=== PATIENT | female | born 1990 | race Caucasian/White ===

== ENCOUNTER 2018-08-10 20:59 | Emergency (ER) | payer OTHER ==
[~2018-08-10] VITALS: Ht 162.6 cm; Wt 91.2 kg
[~2018-08-10 20:59] MED LIST: ABAT250V; ALBU90OI INH; AMOX500 PO; BENTYL20 MG PO; CEPH500 PO; CODGUAEL PO; CRUTCH4 USE; CYCL10 PO; Colace100 MG PO; DOCU100; Desyrel50 MG PO; EXPECTA PRENAT1 EACH; FAMO20 PO; HYDACE5 PO; HYDR1TAB94; HYDROXYZINE; IBUP800; IBUP800 PO; LORA.5 PO; Loperamide2 MG PO; META800 PO; METCAR750 PO; METO10 PO; MULVITMIND PO; Monodox100 MG PO; NAPR500 PO; Norco 5-325 Ta1 EACH PO; OMEP40CA12 PO; ONDA4 PO; OXYACE5T; OXYACE5T PO; PHENERGAN25 MG RC; PROC10 PO; PROC5 PO; PROM25 PO; PROM25S PR; Pepcid40 MG PO; Percocet 5-3251 EACH PO; Prevacid Soluta30 MG JT; RANI150 PO; RXPROM25 PO; RXTRAM50 PO; SPACE CHAMBER1 EACH MC; SUCR1 PO; TRAM50 PO; TRAZODONE; Ultram50 MG PO; Verotin-Gr Cap1 EACH PO; Zofran Odt4 MG PO; Zofran Odt4 MG SL; Zofran Odt8 MG SL
== END 2018-08-10 23:36 | disposition left against medical advice (07) ==
LOC: ER 20:59
DX: Z53.21 Procedure and treatment not carried out due to patient leaving prior to being seen by health care provider (principal)

== ENCOUNTER 2018-08-11 07:24 | Emergency (ER) | payer OTHER ==
[~2018-08-11] VITALS: Ht 162.6 cm; Wt 91.2 kg
== END 2018-08-11 08:50 | disposition home or self-care (01) ==
LOC: ER 07:24
DX: O03.9 Complete or unspecified spontaneous abortion without complication (principal); Z87.891 Personal history of nicotine dependence
CPT/HCPCS: 36415; 84702; 99283

== ENCOUNTER → 2018-08-15 | Outpatient (CLI) | payer OTHER | END | disposition home or self-care (01) | LOC: LAB 11:17 → LAB SHORT 11:17 | DX: O36.80X0 Pregnancy with inconclusive fetal viability, not applicable or unspecified (principal) | CPT/HCPCS: 84702 ==

== ENCOUNTER 2018-09-03 20:37 | Observation (INO) | payer OTHER ==
[~2018-09-03] VITALS: Ht 162.6 cm; Wt 89.8 kg
[2018-09-03 21:16] LABS: BASOPHILS ABSOLUTE AUTO 0.04 K/mm3 (0.00-0.23); BASOPHILS PERCENT AUTO 1 % (0-2); EOSINOPHILS ABSOLUTE AUTO 0.26 K/mm3 (0.00-0.68); EOSINOPHILS PERCENT AUTO 3 % (0-6); Hemoglobin 12.8 g/dL (11.5-16.0); IMMATURE GRAN ABSOLUTE AUTO 0.01 K/mm3 (0.00-0.10); IMMATURE GRAN PERCENT AUTO 0 % (0-1); LYMPHOCYTES ABSOLUTE AUTO 4.63 K/mm3 (0.84-5.20); LYMPHOCYTES PERCENT AUTO 55 % (21-46); MONOCYTES ABSOLUTE AUTO 0.67 K/mm3 (0.16-1.47); MONOCYTES PERCENT AUTO 8 % (4-13); Mean Corpuscular HGB 29.4 pg (26.0-34.0); Mean Corpuscular Volume 92 fL (80-100); Mean Platelet Volume 10.2 fL (9.1-12.4); NEUTROPHILS ABSOLUTE AUTO 2.84 K/mm3 (1.96-9.15); NEUTROPHILS PERCENT AUTO 34 % (41-73); Platelet Count 229 K/mm3 (150-400); RDW Coefficient Variation 12.6 % (11.7-14.2); RDW Standard Deviation 41.8 fL (35.1-46.3); Red Blood Cell Count 4.35 M/mm3 (3.80-5.20); White Blood Cell Count 8.45 K/mm3 (4.00-11.30)
[2018-09-03 21:34] LABS: Alanine Aminotransfer (ALT/SGP 26 U/L (12-78); Albumin/Globulin Ratio 1.1 (0.8-1.8); Alk Phos 51 U/L (50-136); Anion Gap 6 mmol/L (6-16); Aspartate Aminotrans (AST/SGOT 15 U/L (12-37); Bilirubin, Total 0.5 mg/dL (0.1-1.0); Blood Urea Nitrogen 14 mg/dL (8-24); Bun/Creatinine Ratio 15.2 (12.0-20.0); CO2, Blood 30 mmol/L (21-32); Chloride, Blood 106 mmol/L (98-108); Creatinine, Blood 0.92 mg/dL (0.40-1.00); Globulin, Blood 3.5 g/dL (2.2-4.0); Glomerular Filtration Rate >60 (60-); Glucose, Blood 81 mg/dL (70-99); Potassium, Blood 3.7 mmol/L (3.5-5.5); Sodium, Blood 142 mmol/L (136-145); Total Protein, Blood 7.5 g/dL (6.4-8.2)
[2018-09-03 22:09] LABS: Source, Urine Clean Catch
[2018-09-03 22:18] LABS: Bilirubin, Urine Neg (Neg); Blood, Urine Neg (Neg); Glucose Qualitative, Urine Neg (Neg); Ketones, Urine Neg (Neg); Leukocyte Esterase, Urine Neg (Neg); Nitrite, Urine Neg (Neg); Protein, Urine Neg (Neg); Urobilinogen, Urine NORM (Normal); pH, Urine 6.5 (5.0-8.0)
[2018-09-03 22:23] LABS: Appearance, Urine Clear (Clear); Color, Urine Yellow (P-Yellow)
--- NOTE | 2018-09-04 00:20 | NUR ---
PT ADMITTED FROM ED FOR ECTOPIC . A&O X4, VS WNL. STABLE CBC. RATING PAIN 7/10. PT GIVEN BENADRYL IN ED AND IS VERY DROWSY AT THIS TIME. WILL OBTAIN ORDERS FROM DR. RODRIGUEZ. PT REPORTS NO MEDICAL HISTORY AND NO PRESCRIBED MEDICATIONS.
[2018-09-04 01:38] LABS: BASOPHILS ABSOLUTE AUTO 0.02 K/mm3 (0.00-0.23); BASOPHILS PERCENT AUTO 0 % (0-2); EOSINOPHILS ABSOLUTE AUTO 0.19 K/mm3 (0.00-0.68); EOSINOPHILS PERCENT AUTO 3 % (0-6); Hemoglobin 12.6 g/dL (11.5-16.0); IMMATURE GRAN ABSOLUTE AUTO 0.03 K/mm3 (0.00-0.10); IMMATURE GRAN PERCENT AUTO 0 % (0-1); LYMPHOCYTES ABSOLUTE AUTO 3.75 K/mm3 (0.84-5.20); LYMPHOCYTES PERCENT AUTO 55 % (21-46); MONOCYTES ABSOLUTE AUTO 0.56 K/mm3 (0.16-1.47); MONOCYTES PERCENT AUTO 8 % (4-13); Mean Corpuscular HGB 29.8 pg (26.0-34.0); Mean Corpuscular HGB Conc 32.3 g/dL (31.5-36.5); Mean Corpuscular Volume 92 fL (80-100); Mean Platelet Volume 10.2 fL (9.1-12.4); NEUTROPHILS ABSOLUTE AUTO 2.29 K/mm3 (1.96-9.15); NEUTROPHILS PERCENT AUTO 34 % (41-73); Platelet Count 190 K/mm3 (150-400); RDW Coefficient Variation 12.5 % (11.7-14.2); RDW Standard Deviation 42.4 fL (35.1-46.3); Red Blood Cell Count 4.23 M/mm3 (3.80-5.20); White Blood Cell Count 6.84 K/mm3 (4.00-11.30)
[2018-09-04 04:02] LABS: BASOPHILS ABSOLUTE AUTO 0.01 K/mm3 (0.00-0.23); BASOPHILS PERCENT AUTO 0 % (0-2); EOSINOPHILS ABSOLUTE AUTO 0.19 K/mm3 (0.00-0.68); EOSINOPHILS PERCENT AUTO 3 % (0-6); Hematocrit 38.4 % (33.0-51.0); Hemoglobin 12.3 g/dL (11.5-16.0); IMMATURE GRAN ABSOLUTE AUTO 0.01 K/mm3 (0.00-0.10); IMMATURE GRAN PERCENT AUTO 0 % (0-1); LYMPHOCYTES PERCENT AUTO 60 % (21-46); MONOCYTES ABSOLUTE AUTO 0.56 K/mm3 (0.16-1.47); MONOCYTES PERCENT AUTO 9 % (4-13); Mean Corpuscular HGB 29.3 pg (26.0-34.0); Mean Corpuscular Volume 91 fL (80-100); Mean Platelet Volume 10.2 fL (9.1-12.4); NEUTROPHILS ABSOLUTE AUTO 1.83 K/mm3 (1.96-9.15); NEUTROPHILS PERCENT AUTO 28 % (41-73); Platelet Count 197 K/mm3 (150-400); RDW Coefficient Variation 12.7 % (11.7-14.2); RDW Standard Deviation 41.5 fL (35.1-46.3)
[2018-09-04 07:31] LABS: BASOPHILS ABSOLUTE AUTO 0.02 K/mm3 (0.00-0.23); BASOPHILS PERCENT AUTO 0 % (0-2); EOSINOPHILS PERCENT AUTO 3 % (0-6); Hematocrit 39.7 % (33.0-51.0); Hemoglobin 12.7 g/dL (11.5-16.0); IMMATURE GRAN ABSOLUTE AUTO 0.01 K/mm3 (0.00-0.10); IMMATURE GRAN PERCENT AUTO 0 % (0-1); LYMPHOCYTES ABSOLUTE AUTO 3.06 K/mm3 (0.84-5.20); LYMPHOCYTES PERCENT AUTO 52 % (21-46); MONOCYTES ABSOLUTE AUTO 0.54 K/mm3 (0.16-1.47); MONOCYTES PERCENT AUTO 9 % (4-13); Mean Corpuscular HGB 29.5 pg (26.0-34.0); Mean Corpuscular Volume 92 fL (80-100); Mean Platelet Volume 10.1 fL (9.1-12.4); NEUTROPHILS ABSOLUTE AUTO 2.02 K/mm3 (1.96-9.15); NEUTROPHILS PERCENT AUTO 35 % (41-73); Platelet Count 203 K/mm3 (150-400); RDW Coefficient Variation 12.5 % (11.7-14.2); RDW Standard Deviation 42.3 fL (35.1-46.3); Red Blood Cell Count 4.31 M/mm3 (3.80-5.20); White Blood Cell Count 5.85 K/mm3 (4.00-11.30)
[2018-09-04 09:07] LABS: BASOPHILS ABSOLUTE AUTO 0.02 K/mm3 (0.00-0.23); BASOPHILS PERCENT AUTO 0 % (0-2); EOSINOPHILS ABSOLUTE AUTO 0.18 K/mm3 (0.00-0.68); EOSINOPHILS PERCENT AUTO 3 % (0-6); Hematocrit 40.6 % (33.0-51.0); Hemoglobin 13.2 g/dL (11.5-16.0); IMMATURE GRAN ABSOLUTE AUTO 0.01 K/mm3 (0.00-0.10); IMMATURE GRAN PERCENT AUTO 0 % (0-1); LYMPHOCYTES ABSOLUTE AUTO 2.52 K/mm3 (0.84-5.20); LYMPHOCYTES PERCENT AUTO 46 % (21-46); MONOCYTES ABSOLUTE AUTO 0.47 K/mm3 (0.16-1.47); MONOCYTES PERCENT AUTO 9 % (4-13); Mean Corpuscular HGB 29.8 pg (26.0-34.0); Mean Corpuscular HGB Conc 32.5 g/dL (31.5-36.5); Mean Corpuscular Volume 92 fL (80-100); Mean Platelet Volume 10.1 fL (9.1-12.4); NEUTROPHILS ABSOLUTE AUTO 2.26 K/mm3 (1.96-9.15); NEUTROPHILS PERCENT AUTO 41 % (41-73); Platelet Count 207 K/mm3 (150-400); RDW Coefficient Variation 12.4 % (11.7-14.2); RDW Standard Deviation 41.5 fL (35.1-46.3); Red Blood Cell Count 4.43 M/mm3 (3.80-5.20); White Blood Cell Count 5.46 K/mm3 (4.00-11.30)
[2018-09-04] MEDS ORDERED: IBUP800 PO (11:08)
[2018-09-04] MEDS ORDERED: TYLECOD3 PO (11:10)
--- NOTE | 2018-09-04 12:45 | NUR ---
PATIENT D/C'D HOME AT THIS TIME; STATES UNDERSTANDING OF F/U WEEKLY LABS, APPT, CALL DR FOR WORSENING OF SYMPTOMS, MEDS. NO C/O AT THIS TIME. TAKING PO. VOIDING. PAIN CONTROLLED.
== END 2018-09-04 12:42 | disposition home or self-care (01) ==
LOC: ER 20:37 → SURS 20:38 → ER 09-04 00:13 → SURS 09-04 00:13
PROVIDERS: Physician Assistant; ADMIT Obstetrics & Gynecology
DX: O02.81 Inappropriate change in quantitative human chorionic gonadotropin (hCG) in early pregnancy (principal); Z87.891 Personal history of nicotine dependence
CPT/HCPCS: 36415; 76830; 76856; 80053; 81003; 83690; 84702; 85025; 96374; 96375; 96376; 99285-25; G0378; J0780; J1200; J1885; J2405; J3010

== ENCOUNTER 2018-09-09 13:22 | Emergency (ER) | payer OTHER ==
[~2018-09-09] VITALS: Ht 162.6 cm; Wt 84.8 kg
[~2018-09-09 13:22] MED LIST changes: +TYLECOD3 PO
[2018-09-09 14:11] LABS: BASOPHILS ABSOLUTE AUTO 0.02 K/mm3 (0.00-0.23); BASOPHILS PERCENT AUTO 0 % (0-2); EOSINOPHILS ABSOLUTE AUTO 0.06 K/mm3 (0.00-0.68); EOSINOPHILS PERCENT AUTO 1 % (0-6); Hemoglobin 13.4 g/dL (11.5-16.0); IMMATURE GRAN ABSOLUTE AUTO 0.02 K/mm3 (0.00-0.10); IMMATURE GRAN PERCENT AUTO 0 % (0-1); LYMPHOCYTES ABSOLUTE AUTO 1.84 K/mm3 (0.84-5.20); LYMPHOCYTES PERCENT AUTO 27 % (21-46); MONOCYTES ABSOLUTE AUTO 0.36 K/mm3 (0.16-1.47); MONOCYTES PERCENT AUTO 5 % (4-13); Mean Corpuscular HGB 30.3 pg (26.0-34.0); Mean Corpuscular HGB Conc 33.5 g/dL (31.5-36.5); Mean Corpuscular Volume 91 fL (80-100); Mean Platelet Volume 10.5 fL (9.1-12.4); NEUTROPHILS ABSOLUTE AUTO 4.47 K/mm3 (1.96-9.15); NEUTROPHILS PERCENT AUTO 66 % (41-73); Platelet Count 240 K/mm3 (150-400); RDW Coefficient Variation 12.4 % (11.7-14.2); RDW Standard Deviation 41.2 fL (35.1-46.3); Red Blood Cell Count 4.42 M/mm3 (3.80-5.20); White Blood Cell Count 6.77 K/mm3 (4.00-11.30)
[2018-09-09 14:18] LABS: Alanine Aminotransfer (ALT/SGP 24 U/L (12-78); Albumin, Blood 4.1 g/dL (3.4-5.0); Albumin/Globulin Ratio 1.2 (0.8-1.8); Alk Phos 52 U/L (50-136); Anion Gap 4 mmol/L (6-16); Aspartate Aminotrans (AST/SGOT 20 U/L (12-37); Beta HCG, Quantitative, Serum 2 mIU/mL (0-3); Bilirubin, Total 0.6 mg/dL (0.1-1.0); Blood Urea Nitrogen 13 mg/dL (8-24); Bun/Creatinine Ratio 17.1 (12.0-20.0); CO2, Blood 27 mmol/L (21-32); Calcium, Blood 9.2 mg/dL (8.5-10.1); Chloride, Blood 109 mmol/L (98-108); Creatinine, Blood 0.76 mg/dL (0.40-1.00); Globulin, Blood 3.5 g/dL (2.2-4.0); Glomerular Filtration Rate >60 (60-); Glucose, Blood 96 mg/dL (70-99); Potassium, Blood 3.9 mmol/L (3.5-5.5); Sodium, Blood 140 mmol/L (136-145); Total Protein, Blood 7.6 g/dL (6.4-8.2)
[2018-09-09 15:10] LABS: Source, Urine Clean Catch
[2018-09-09 15:24] LABS: Appearance, Urine Clear (Clear); Bilirubin, Urine Neg (Neg); Blood, Urine Neg (Neg); Color, Urine Yellow (P-Yellow); Glucose Qualitative, Urine Neg (Neg); Ketones, Urine 2+ (Neg); Leukocyte Esterase, Urine Neg (Neg); Nitrite, Urine Neg (Neg); Protein, Urine Neg (Neg); Specific Gravity, Urine 1.015 (1.003-1.022); Urobilinogen, Urine 1+ (Normal)
[2018-09-09] MEDS ORDERED: Norco 5-325 Ta1 EACH PO (15:48)
[2018-09-09] MEDS ORDERED: Zofran4 MG PO (15:48)
== END 2018-09-09 15:58 | disposition home or self-care (01) ==
LOC: ER 13:22
PROVIDERS: Physician Assistant
DX: R11.2 Nausea with vomiting, unspecified (principal); Z87.891 Personal history of nicotine dependence
CPT/HCPCS: 36415; 80053; 81003; 84702; 85025; 96374; 99283-25; J2405

== ENCOUNTER 2019-01-01 15:33 | Emergency (ER) | payer OTHER ==
[~2019-01-01] VITALS: Ht 162.6 cm; Wt 86.2 kg
[~2019-01-01 15:33] MED LIST changes: +Zofran4 MG PO
== END 2019-01-01 17:19 | disposition home or self-care (01) ==
LOC: ER 15:33
DX: Z03.89 Encounter for observation for other suspected diseases and conditions ruled out (principal); Z87.891 Personal history of nicotine dependence
CPT/HCPCS: 36415; 84702; 99283

== ENCOUNTER 2019-03-26 08:21 | Emergency (ER) | payer OTHER ==
[~2019-03-26] VITALS: Ht 167.6 cm; Wt 88.5 kg
[2019-03-26] MEDS ORDERED: PRENATAL TABLE1 EAC2 PO (08:49)
[2019-03-26] MEDS ORDERED: ONDA4ODT MM (08:49)
[2019-03-26 09:12] LABS: BASOPHILS ABSOLUTE AUTO 0.02 K/mm3 (0.00-0.23); BASOPHILS PERCENT AUTO 0 % (0-2); EOSINOPHILS PERCENT AUTO 1 % (0-6); Hematocrit 37.7 % (33.0-51.0); Hemoglobin 12.9 g/dL (11.5-16.0); IMMATURE GRAN ABSOLUTE AUTO 0.03 K/mm3 (0.00-0.10); IMMATURE GRAN PERCENT AUTO 0 % (0-1); LYMPHOCYTES ABSOLUTE AUTO 2.62 K/mm3 (0.84-5.20); LYMPHOCYTES PERCENT AUTO 32 % (21-46); MONOCYTES ABSOLUTE AUTO 0.72 K/mm3 (0.16-1.47); MONOCYTES PERCENT AUTO 9 % (4-13); Mean Corpuscular HGB Conc 34.2 g/dL (31.5-36.5); Mean Platelet Volume 10.2 fL (9.1-12.4); NEUTROPHILS ABSOLUTE AUTO 4.79 K/mm3 (1.96-9.15); NEUTROPHILS PERCENT AUTO 58 % (41-73); Platelet Count 186 K/mm3 (150-400); RDW Coefficient Variation 12.1 % (11.7-14.2); RDW Standard Deviation 39.8 fL (35.1-46.3); Red Blood Cell Count 4.16 M/mm3 (3.80-5.20); White Blood Cell Count 8.28 K/mm3 (4.00-11.30)
[2019-03-26 09:13] LABS: Mean Corpuscular Volume 91 fL (80-100)
[2019-03-26 09:38] LABS: Alanine Aminotransfer (ALT/SGP 23 U/L (12-78); Albumin, Blood 3.4 g/dL (3.4-5.0); Alk Phos 41 U/L (50-136); Anion Gap 10 mmol/L (6-16); Aspartate Aminotrans (AST/SGOT 15 U/L (12-37); Bilirubin, Total 0.4 mg/dL (0.1-1.0); Blood Urea Nitrogen 10 mg/dL (8-24); Bun/Creatinine Ratio 17.7 (12.0-20.0); CO2, Blood 23 mmol/L (21-32); Calcium, Blood 8.7 mg/dL (8.5-10.1); Chloride, Blood 106 mmol/L (98-108); Creatinine, Blood 0.56 mg/dL (0.40-1.00); Globulin, Blood 3.4 g/dL (2.2-4.0); Glomerular Filtration Rate >60 (60-); Glucose, Blood 79 mg/dL (70-99); Potassium, Blood 3.8 mmol/L (3.5-5.5); Sodium, Blood 139 mmol/L (136-145); Total Protein, Blood 6.8 g/dL (6.4-8.2)
[2019-03-26 10:00] LABS: Beta HCG, Quantitative, Serum 142655 mIU/mL (0-3)
[2019-03-26 10:30] LABS: Source, Urine Clean Catch
[2019-03-26 10:36] LABS: Appearance, Urine Clear (Clear); Bilirubin, Urine Neg (Neg); Blood, Urine Neg (Neg); Color, Urine Yellow (P-Yellow); Glucose Qualitative, Urine Neg (Neg); Ketones, Urine 3+ (Neg); Leukocyte Esterase, Urine Neg (Neg); Nitrite, Urine Neg (Neg); Protein, Urine Neg (Neg); Urobilinogen, Urine NORM (Normal)
[2019-03-26] MEDS ORDERED: Promethazine12.5 M1 PO (11:10)
== END 2019-03-26 11:34 | disposition home or self-care (01) ==
LOC: ER 08:21
PROVIDERS: Emergency Medicine
DX: O21.9 Vomiting of pregnancy, unspecified (principal); F17.200 Nicotine dependence, unspecified, uncomplicated; Z91.018 Allergy to other foods; Z3A.08 8 weeks gestation of pregnancy
CPT/HCPCS: 36415; 80053; 81003; 83690; 84702; 85025; 96361; 96374; 99284-25; J2405; J7030

== ENCOUNTER → 2019-05-21 | Outpatient (CLI) | payer OTHER ==
[~2019-05-21] MED LIST changes: +ONDA4ODT MM; +PRENATAL TABLE1 EAC2 PO; +Promethazine12.5 M1 PO
[2019-05-24 07:07] LABS: CHLAMYDIA TRACHOMATIS, NAA Negative (Negative); NEISSERIA GONORRHOEAE, NAA Negative (Negative)
== END | disposition home or self-care (01) ==
LOC: LAB 15:31 → LAB SHORT 15:31
PROVIDERS: Advanced Practice Midwife
DX: Z11.3 Encounter for screening for infections with a predominantly sexual mode of transmission (principal)
CPT/HCPCS: 87491; 87591

== ENCOUNTER 2019-05-30 09:39 | Emergency (ER) | payer OTHER ==
[~2019-05-30] VITALS: Ht 165.1 cm; Wt 91.2 kg
[2019-05-30 10:06] LABS: BASOPHILS ABSOLUTE AUTO 0.02 K/mm3 (0.00-0.23); BASOPHILS PERCENT AUTO 0 % (0-2); EOSINOPHILS ABSOLUTE AUTO 0.02 K/mm3 (0.00-0.68); EOSINOPHILS PERCENT AUTO 0 % (0-6); Hematocrit 43.2 % (33.0-51.0); IMMATURE GRAN ABSOLUTE AUTO 0.04 K/mm3 (0.00-0.10); IMMATURE GRAN PERCENT AUTO 1 % (0-1); LYMPHOCYTES PERCENT AUTO 8 % (21-46); MONOCYTES PERCENT AUTO 3 % (4-13); Mean Corpuscular HGB 31.4 pg (26.0-34.0); Mean Corpuscular HGB Conc 34.7 g/dL (31.5-36.5); Mean Corpuscular Volume 90 fL (80-100); Mean Platelet Volume 10.5 fL (9.1-12.4); NEUTROPHILS ABSOLUTE AUTO 7.72 K/mm3 (1.96-9.15); NEUTROPHILS PERCENT AUTO 88 % (41-73); Platelet Count 195 K/mm3 (150-400); RDW Coefficient Variation 12.8 % (11.7-14.2); RDW Standard Deviation 41.9 fL (35.1-46.3); Red Blood Cell Count 4.78 M/mm3 (3.80-5.20)
[2019-05-30 10:15] LABS: Alanine Aminotransfer (ALT/SGP 29 U/L (12-78); Albumin, Blood 3.2 g/dL (3.4-5.0); Albumin/Globulin Ratio 0.8 (0.8-1.8); Alk Phos 59 U/L (50-136); Anion Gap 9 mmol/L (6-16); Aspartate Aminotrans (AST/SGOT 22 U/L (12-37); Bilirubin, Total 0.6 mg/dL (0.1-1.0); Blood Urea Nitrogen 11 mg/dL (8-24); Bun/Creatinine Ratio 19.7 (12.0-20.0); CO2, Blood 22 mmol/L (21-32); Calcium, Blood 8.9 mg/dL (8.5-10.1); Chloride, Blood 106 mmol/L (98-108); Creatinine, Blood 0.56 mg/dL (0.40-1.00); Glomerular Filtration Rate >60 (60-); Glucose, Blood 105 mg/dL (70-99); Potassium, Blood 3.8 mmol/L (3.5-5.5); Sodium, Blood 137 mmol/L (136-145); Total Protein, Blood 7.2 g/dL (6.4-8.2)
[2019-05-30 10:21] LABS: Influenza A Negative (NEGATIVE); Influenza B Negative (NEGATIVE)
== END 2019-05-30 11:48 | disposition home or self-care (01) ==
LOC: ER 09:39
PROVIDERS: Emergency Medicine
DX: O99.512 Diseases of the respiratory system complicating pregnancy, second trimester (principal); J11.1 Influenza due to unidentified influenza virus with other respiratory manifestations; Z91.018 Allergy to other foods; Z87.891 Personal history of nicotine dependence; Z3A.18 18 weeks gestation of pregnancy
CPT/HCPCS: 36415; 80053; 85025; 87804; 96361; 96374; 96375; 99284-25; A9270; C9113; J2405; J7030

== ENCOUNTER → 2019-07-20 | Outpatient (CLI) | payer OTHER | LOC: LAB SHORT 13:40 → LAB 13:40 | DX: J06.9 Acute upper respiratory infection, unspecified (principal); J02.9 Acute pharyngitis, unspecified | CPT/HCPCS: 87081 ==

== ENCOUNTER → 2019-09-06 | Outpatient (CLI) | payer OTHER ==
[2019-09-07 15:22] LABS: Protein, Urine Quantitative <5.0 mg/dL (0.0-11.9)
== END | disposition home or self-care (01) ==
LOC: LAB SHORT 13:00 → LAB 13:00
PROVIDERS: Obstetrics & Gynecology
DX: O13.9 Gestational [pregnancy-induced] hypertension without significant proteinuria, unspecified trimester (principal)
CPT/HCPCS: 81050; 84156

== ENCOUNTER → 2019-10-02 | Outpatient (CLI) | payer OTHER | END | disposition home or self-care (01) | LOC: LAB SHORT 10:30 → LAB 10:30 | DX: O13.9 Gestational [pregnancy-induced] hypertension without significant proteinuria, unspecified trimester (principal) | CPT/HCPCS: 87081; 87653 ==

== ENCOUNTER 2019-10-11 05:13 | Inpatient (IN) | payer OTHER ==
[~2019-10-11] VITALS: Ht 162.6 cm; Wt 112.7 kg
[2019-10-11] MEDS ORDERED: LABE100 PO (06:03)
[2019-10-11 07:25] LABS: BASOPHILS ABSOLUTE AUTO 0.01 K/mm3 (0.00-0.23); BASOPHILS PERCENT AUTO 0 % (0-2); EOSINOPHILS ABSOLUTE AUTO 0.14 K/mm3 (0.00-0.68); EOSINOPHILS PERCENT AUTO 2 % (0-6); IMMATURE GRAN ABSOLUTE AUTO 0.05 K/mm3 (0.00-0.10); IMMATURE GRAN PERCENT AUTO 1 % (0-1); LYMPHOCYTES ABSOLUTE AUTO 2.38 K/mm3 (0.84-5.20); LYMPHOCYTES PERCENT AUTO 27 % (21-46); MONOCYTES PERCENT AUTO 10 % (4-13); Mean Corpuscular HGB 30.1 pg (26.0-34.0); Mean Corpuscular HGB Conc 32.4 g/dL (31.5-36.5); Mean Corpuscular Volume 93 fL (80-100); NEUTROPHILS ABSOLUTE AUTO 5.34 K/mm3 (1.96-9.15); NEUTROPHILS PERCENT AUTO 61 % (41-73); Platelet Count 184 K/mm3 (150-400); RDW Coefficient Variation 14.2 % (11.7-14.2); RDW Standard Deviation 47.2 fL (35.1-46.3); Red Blood Cell Count 3.99 M/mm3 (3.80-5.20); White Blood Cell Count 8.82 K/mm3 (4.00-11.30)
--- NOTE | 2019-10-12 11:47 | NUR ---
VOIDED IN SHOWER
--- NOTE | 2019-10-12 21:11 | NUR ---
1924 PT C/O PAIN 8/10 "CRAMPING" IN ABDOMEN. STATES NO RELIEF FROM 325MG APAP GIVEN BY PREVIOUS SHIFT NURSE. PROVIDER CONTACTED AND GIVES ORDER FOR ADDITIONAL 650MG PO APAP NOW AND TO HAVE PT TRIAL USE OF A HEATING PAD TO ABDOMEN.
--- NOTE | 2019-10-13 08:29 | NUR ---
DISCHARGE TEACHING TEACHING COMPLETED PATIENT HAS NO FURTHER QUESTIONS OR CONCERNS AT THIS TIME
--- NOTE | 2019-10-13 09:45 | NUR ---
DISCHARGE PATIENT DISCHARGED TO HOME
== END 2019-10-13 09:50 | disposition home or self-care (01) | DRG 807 ==
LOC: OBS 05:13 → BC 05:14 → OBS 05:20 → BC 05:22
PROVIDERS: ADMIT Obstetrics & Gynecology
PROC: 3E0P7VZ Introduction of Hormone into Female Reproductive, Via Natural or Artificial Opening (ICD-10-PCS; 2019-10-11)
PROC: 10E0XZZ Delivery of Products of Conception, External Approach (ICD-10-PCS; principal; 2019-10-12)
PROC: 10907ZC Drainage of Amniotic Fluid, Therapeutic from Products of Conception, Via Natural or Artificial Opening (ICD-10-PCS; 2019-10-12)
PROC: 10H07YZ Insertion of Other Device into Products of Conception, Via Natural or Artificial Opening (ICD-10-PCS; 2019-10-12)
PROC: 00HU33Z Insertion of Infusion Device into Spinal Canal, Percutaneous Approach (ICD-10-PCS; 2019-10-12)
PROC: 3E0R3BZ Introduction of Anesthetic Agent into Spinal Canal, Percutaneous Approach (ICD-10-PCS; 2019-10-12)
PROC: 3E033VJ Introduction of Other Hormone into Peripheral Vein, Percutaneous Approach (ICD-10-PCS; 2019-10-12)
DX: O13.4 Gestational [pregnancy-induced] hypertension without significant proteinuria, complicating childbirth (principal); Z37.0 Single live birth; Z3A.37 37 weeks gestation of pregnancy; O76 Abnormality in fetal heart rate and rhythm complicating labor and delivery; O69.1XX0 Labor and delivery complicated by cord around neck, with compression, not applicable or unspecified
CPT/HCPCS: 36415; 51702; 85025; 86850; 86900; 86901; A9270; J1885; J2001; J2210; J2405; J2550; J2590; J2765; J3010; J7120

== ENCOUNTER 2020-08-03 06:21 | Day surgery (SDC) | payer OTHER ==
[~2020-08-03] VITALS: Ht 162.6 cm; Wt 102.0 kg
[~2020-08-03 06:21] MED LIST changes: +Amitriptyline H10 MG PO; +LABE100 PO
--- NOTE | 2020-08-03 07:08 | NUR ---
Ambulatory in Day Surgery History, Chart, Medications and Allergies reviewed before start of procedure. Lungs clear T/O to Auscultation. Pre-Op teaching done. Pt verbalizes understanding.
--- NOTE | 2020-08-03 09:15 | NUR ---
PACU - PT CLEANED OF BLOOD - 1 MEDIUM SIZED CLOT (SIZE OF TENNIS BALL) REMOVED.
--- NOTE | 2020-08-03 10:08 | NUR ---
DR SIERRA UPDATED, IV BAD AND D/C WITH TIP INTACT, DR SIERRA UPDATED OF ONLY HALF OF THE ABX WENT IN, SHE ORDERED TO GIVE PO ABX AND SEPTEMBER D/C HOME WHEN SHE HAS A RIDE
--- NOTE | 2020-08-03 11:45 | NUR ---
d/c home with friend
[2020-08-04 14:22] LABS: Performing Lab SYMBIODX; Test Name EMBEDDED BLOCK
== END 2020-08-03 11:47 | disposition home or self-care (01) ==
LOC: ORSCMMR 06:21 → ORD 07:00 → VAS 07:00 → ORSCMMR 07:30 → EDSTATUS 07:30 → ORD 07:30 → BC 09:30 → ORSCMMR 11:47
PROVIDERS: Obstetrics & Gynecology
PROC: 10D07Z6 Extraction of Products of Conception, Vacuum, Via Natural or Artificial Opening (ICD-10-PCS; principal; 2020-08-03 07:30)
DX: O02.0 Blighted ovum and nonhydatidiform mole (principal); E66.01 Morbid (severe) obesity due to excess calories; Z68.38 Body mass index [BMI] 38.0-38.9, adult; Z79.899 Other long term (current) drug therapy
CPT/HCPCS: 76998; 86850; 86900; 86901; 88305; 88342; 88363; 88374; A9270; J1885; J2210; J2250; J2405; J2765; J3010; J7050; J7120